=== PATIENT | female | born 1950 | race Caucasian/White ===

== ENCOUNTER 2018-04-30 09:15 | Emergency (ER) | payer OTHER ==
[~2018-04-30] VITALS: Ht 167.6 cm; Wt 99.8 kg
[2018-04-30 09:22] VITALS: BP_SYST 101
[2018-04-30] MEDS ORDERED: LIDOCAINE 1% 10 MG/ML, 20 ML MDV INJ ONE (09:45)
[2018-04-30] MEDS ORDERED: LIDOCAINE 1%, 20 ML MDV 20 ML ONE (09:50)
[2018-04-30] MEDS ORDERED: BACITRACIN 1 GM OINT TP ONE (10:00)
[2018-04-30 10:15] VITALS: BP_SYST 150
== END 2018-04-30 10:15 | disposition home or self-care (01) ==
LOC: SED 09:15
DX: S61.012A Laceration without foreign body of left thumb without damage to nail, initial encounter (principal); E78.00 Pure hypercholesterolemia, unspecified; K21.9 Gastro-esophageal reflux disease without esophagitis; I10 Essential (primary) hypertension; Z90.710 Acquired absence of both cervix and uterus; W26.8XXA Contact with other sharp object(s), not elsewhere classified, initial encounter; Y93.89 Activity, other specified; Y92.89 Other specified places as the place of occurrence of the external cause; Y99.8 Other external cause status
CPT/HCPCS: 12002; 99283; J2001

== ENCOUNTER 2018-11-25 05:28 | Inpatient (IN) | payer OTHER ==
[~2018-11-25] VITALS: Ht 167.6 cm; Wt 99.8 kg
[2018-11-25 05:28] VITALS: BP_SYST 160
--- NOTE | 2018-11-25 05:28 | NUR ---
Patient to ER bed 8 to gown for evaluation. Side rails up.
--- NOTE | 2018-11-25 05:31 | NUR ---
Pt BIB family to ED C/O bilat swelling neck area since yesterday more so to the right. Overall, been about 5 days, affecting her eating and sleeping. Also experiencing night sweats. Pt does take synthroid medication at home. No other injuries and or complaints noted. VSS, no s/s of acute distress. Resting on gurney with rails up
--- NOTE | 2018-11-25 06:00 | NUR ---
Dr. Urrutia Bedside for pt eval
--- NOTE | 2018-11-25 06:01 | NUR ---
ER Dr. Urrutia at bedside examining patient.
[2018-11-25] MEDS ORDERED: NACL 0.9% 1,000 ML IV ONE (06:06)
[2018-11-25] MEDS ORDERED: KETOROLAC TROMETHAMINE 30 MG VIAL IVP ONE (06:15)
[2018-11-25 06:27] LABS: BASOPHILS % (AUTO) 0.5 % (0.0-2.0); EOSINOPHILS # (AUTO) 0.1 K/uL (0.0-0.4); EOSINOPHILS % (AUTO) 1.1 % (0.0-4.0); HEMATOCRIT 41.4 % (36-48); HEMOGLOBIN 13.8 g/dL (12.0-16.0); LYMPHOCYTES # (AUTO) 1.8 K/uL (1.0-5.5); LYMPHOCYTES % (AUTO) 19.5 % (20.5-51.5); MEAN CORPUSCULAR HEMOGLOBIN 30 pg (27-31); MEAN CORPUSCULAR HGB CONC 33 % (32-36); MEAN CORPUSCULAR VOLUME 90 fL (79.0-98.0); MONOCYTES # (AUTO) 0.8 K/uL (0.0-1.0); MONOCYTES % (AUTO) 8.9 % (1.7-9.3); NEUTROPHILS # (AUTO) 6.3 K/uL (1.8-7.7); PLATELET COUNT (AUTO) 265 K/uL (130-430); RED BLOOD CELL COUNT(AUTO) 4.61 MIL/uL (4.2-6.2); RED CELL DISTRIBUTION WIDTH 13.5 % (9.0-15.0); WHITE BLOOD COUNT (AUTO) 9.1 K/uL (4.8-10.8)
[2018-11-25 06:44] LABS: ALBUMIN 3.7 g/dL (3.4-4.8); POTASSIUM 4.9 mmol/L (3.5-5.1); TOTAL BILIRUBIN 0.8 mg/dL (0.0-1.0)
--- NOTE | 2018-11-25 06:51 | NUR ---
Pt awaiting Radiology for CT scan with contrast. Consent already on file
[2018-11-25] MEDS ORDERED: IOHEXOL 350 mgI/mL, 150 ML INFUS..BTL IV ONE (07:04)
[2018-11-25] MEDS ORDERED: IOHEXOL 100 ML IV ONE (07:08)
[2018-11-25] MEDS ORDERED: DEXAMETHASONE SOD PHOSPHATE 10 MG/ML VIAL IVP ONE (07:15)
--- NOTE | 2018-11-25 07:19 | NUR ---
Patient given Decadron as ordered, ambulated to restroom with steady gait. Given urine sample cup for collection. Patients lower jaw line swollen with mild pink skin. Patient states "If I even think about food, the swelling comes back bigger. I only ate cream of wheat for dinner because of difficulty swallowing, I woke up during the night with more swelling and felt shortness of breath." Patient states dry mouth present, no recent dental work, and no recent illness. No fever present, but states she was sweaty when she woke last night. No nausea and vomiting.
--- NOTE | 2018-11-25 07:40 | NUR ---
Patient was taken to CT scan via gurney.
--- NOTE | 2018-11-25 07:53 | NUR ---
Patient returned to room via ellen accompanied by
[2018-11-25 07:55] LABS: BILIRUBIN,URINE NEGATIVE (NEGATIVE); CLARITY/URINE HAZY (CLEAR); COLOR,URINE YELLOW (YELLOW); GLUCOSE,URINE NEGATIVE (NEGATIVE); KETONES,URINE NEGATIVE (NEGATIVE); LEUKOCYTE ESTERASE ,URINE 3+ (NEGATIVE); NITRITE, URINE NEGATIVE (NEGATIVE); PH,URINE 7.5 (5.0-8.0); PROTEIN URINE NEGATIVE (NEGATIVE); UROBILINOGEN,URINE 0.2 (0.2-1.0)
[2018-11-25 08:00] LABS: BLOOD, URINE TRACE (NEGATIVE)
[2018-11-25 08:36] LABS: BACTERIA,URINE FEW /HPF (None Seen); WBC,URINE 50-80 /HPF (0-3)
--- NOTE | 2018-11-25 08:47 | NUR ---
Patient CT scan report received, given to ED MD, call placed to admitting physician.
[2018-11-25] MEDS ORDERED: cefTRIAXone 1 GM IVPB PREMIX 50 ML IV ONE (09:15)
--- NOTE | 2018-11-25 09:25 | NUR ---
Lab completed blood draw for blood cultures x2. Spoke with physician Dr. Lynn via phone, he will put in admitting orders. Will call for room assignment.
[2018-11-25] MEDS ORDERED: ACETAMINOPHEN 325 MG TABLET PO PRN (09:30)
[2018-11-25] MEDS ORDERED: ONDANSETRON HCL 4 MG/2 ML VIAL IVP PRN (09:30)
[2018-11-25] MEDS ORDERED: ALBUTEROL SULFATE 0.083% 2.5 MG/3 ML VIAL.NEB INH PRN ×2 (09:30→10:15)
--- NOTE | 2018-11-25 09:39 | NUR ---
No medication reconciliation completed, patients to bring in medications.
--- NOTE | 2018-11-25 09:39 | NUR ---
Patient will be admitted to care of Dr. Gilda Lynn. Admitted to Telemetry unit. Will go to room 120A. Belongings list completed. Summary report printed. Report will be given at bedside.
--- NOTE | 2018-11-25 09:58 | NUR ---
ADMISSION NOTE Received patient from ER via ellen, received report from CATIA MEDINA. Patient admitted with diagnosis of NECK MASS/UTI. Patient oriented to hospital routine, call light, toileting and safety-patient verbalized understanding.
--- NOTE | 2018-11-25 10:02 | NUR ---
INITIAL ADMISSION NOTE Patient resting in the bed. No acute distress. Respiration even and unlabored. AAO x 4. Stated that "the neck pain very mild after ER gave me pain med, 07/05 now". Skin warm and dry to touch. IV intact to RAC, no redness, no swelling, patent. Discussed the safety issue, use call light when needs help, and plan of care, verbally understanding. Call light within reached. at bedside. Will continue to monitor.
[2018-11-25 10:13] VITALS: BP_SYST 160
[2018-11-25] MEDS ORDERED: cloNIDine HCL 0.1 MG TABLET PO PRN (10:15)
--- NOTE | 2018-11-25 10:15 | NUR ---
SEEN AND EXAMINED BY TREMAYNE Jessica Dr. assessed patient at bedside. Explain the diagnosis and CT result, and answered the question to patient and , verbally understanding.
--- NOTE | 2018-11-25 10:26 | NUR ---
CONSULTATION PAGED/CALLED Reason for Consultation: RESP DISTRESS Person Who was Notified: SPOKE WITH HAZEL FROM [employer] Consulting Physician: Lasting Machine Operator Hand Method Specialty: PULMONARY Ordering Physician:
[2018-11-25] MEDS ORDERED: LISI-600 PO (10:41)
[2018-11-25] MEDS ORDERED: LIP40 PO (10:41)
[2018-11-25] MEDS ORDERED: MULT-1164 PO (10:41)
[2018-11-25] MEDS ORDERED: PRO40 PO (10:41)
[2018-11-25] MEDS ORDERED: ATEN50TA PO (10:41)
[2018-11-25] MEDS ORDERED: PRO10 PO (10:41)
[2018-11-25] MEDS ORDERED: SYN50 PO (10:41)
--- NOTE | 2018-11-25 10:48 | NUR ---
Paged Dr. Lynn for home medication reconciliation
--- NOTE | 2018-11-25 11:10 | NUR ---
SEEN AND EXAMINED BY KENDY EISENBERG Dr. assessed patient at bedside. Explained and answered questions to patient and .
[2018-11-25] MEDS ORDERED: ATENOLOL 50 MG TABLET (TENORMIN) PO ONE (11:30)
[2018-11-25] MEDS ORDERED: LISINOPRIL 20 MG TABLET PO ONE (11:30)
[2018-11-25] MEDS ORDERED: MULTIVITS,CA,MINERALS/IRON/FA 1 TABLET PO ONE (11:30)
[2018-11-25] MEDS ORDERED: PANTOPRAZOLE SODIUM 40 MG TAB PO SCH (11:30)
[2018-11-25] MEDS ORDERED: FLUoxetine HCL 10 MG CAPSULE (PROzac) PO ONE (11:30)
--- NOTE | 2018-11-25 11:32 | NUR ---
CONSULTATION PAGED/CALLED Reason for Consultation: NECK MASS/SALIVARY DUCT OBSTRUCTION Person Who was Notified: CLOTILDE HARDY IS PREPARED [employer] ASSOCIATE FOR Consulting Physician: CLOTILDE HARDY Tip Fixer Specialty: ENT Ordering Physician:
[2018-11-25] MEDS: 0.45% NACL 1,000 ML IV SCH (11:51)
--- NOTE | 2018-11-25 11:54 | NUR ---
MEDS GIVEN PO meds given, patient swallow without difficultly. Aspiration precaution maintained. Safety measure maintained. Call light within reached. Bed locked in low position, side rails up. Continue to monitor.
--- NOTE | 2018-11-25 12:24 | NUR ---
LUNCH Patient had lunch and able to consume 100% of the meal. No c/o pain when chewing. No swallow difficulty noted. Aspiration precaution implemented. Iv intact, IVF infusing well. Safety measure maintained. Call light within reached. Bed locked in low position, side rails up. Refused bed alarm, risk and benefit explained, verbally understanding. Continue to monitor.
--- NOTE | 2018-11-25 13:05 | NUR ---
SLEEPING Patient sleeping at this time. No acute distress. IV intact, IVF infusing well. Safety measure maintained. Bed locked in low position, side rails up. Call light within reached. Continue to monitor.
[2018-11-25] MEDS ORDERED: AMPICILLIN SODIUM/SULBACTAM NA 3 GM VIAL IM SCH (14:00)
--- NOTE | 2018-11-25 14:05 | NUR ---
BATHROOM Ambulated patient to bathroom with carpenter's assistant. Void yellow urine, no hematuria/dysuria noted. Patient prefers and able to wipe the perineal area, then wash hands. Assisted back to bed. Safety measure maintained. Call light within reached. bed locked in low position, side rails up. Continue to monitor.
[2018-11-25] MEDS ORDERED: AMPICILLIN /SULBACTAM NA 3 GM in NORMAL SALINE 100 ML IV ONE (15:15)
[2018-11-25 16:26] VITALS: BP_SYST 134
--- NOTE | 2018-11-25 16:33 | NUR ---
WATCHING TV Patient resting in the bed and watching TV. No acute distress. Safety measure maintained. Call light within reached. Bed locked in low position, side rails up. Continue to monitor.
--- NOTE | 2018-11-25 18:57 | NUR ---
CLOSING NOTE Patient resting in the bed. No acute distress. Denied of pain. Skin warm and dry to touch. V intact to RAC, no redness, no swelling, no drainage. On 06/27 NS at 50ml/hr, infusing well. at bedside. All needs met. Safety measure maintained. Bed locked in low position, side rails up. Refused bed alarm, risk and benefit explained, verbally understanding. Call light within reached. Will endorse to night nurse.
--- NOTE | 2018-11-25 19:15 | NUR ---
Opening notes Received report. Patient resting comfortably in bed. no signs of distress noted. Breathing even and unlabored. Patient states swelling in neck has gone down. IV patent and intact. No needs at this time. Call light with the patient. Safety precautions in place.
[2018-11-25 20:00] VITALS: BP_SYST 144
[2018-11-25] MEDS ORDERED: ATORVASTATIN 20 MG TABLET PO SCH (21:00)
[2018-11-25] MEDS: AMPICILLIN /SULBACTAM NA 3 GM in NORMAL SALINE 100 ML IV SCH (21:07)
--- NOTE | 2018-11-25 21:07 | NUR ---
Medications given. Educated the action and side effects of medications. Patient verbalized understanding and tolerated well. No signs of allergic reaction noted. Patient provided own oral care. No needs. Call light with the patient. Safety precautions in place.
[2018-11-25] MEDS ORDERED: AMPICILLIN SODIUM/SULBACTAM NA 3 GM VIAL IV SCH (22:00)
--- NOTE | 2018-11-25 23:00 | NUR ---
Resting in bed, on cell phone. No signs of distress noted. Breathing even and unlabored. IV patent and intact. Safety precautions in place.
[2018-11-26 00:27] VITALS: BP_SYST 142
--- NOTE | 2018-11-26 01:17 | NUR ---
Resting Patient is on cellphone. No signs of distress noted. Breathing even and unlabored. Safety precautions in place.
--- NOTE | 2018-11-26 04:00 | NUR ---
Sleeping No signs of distress noted. Breathing even and unlabored. IVF infusing well. Safety precautions in place.
[2018-11-26] MEDS: 0.45% NACL 1,000 ML IV SCH ×2 (04:56→08:17)
[2018-11-26] MEDS: AMPICILLIN /SULBACTAM NA 3 GM in NORMAL SALINE 100 ML IV SCH (06:08)
[2018-11-26 06:16] LABS: BASOPHILS % (AUTO) 0.1 % (0.0-2.0); HEMATOCRIT 40.5 % (36-48); HEMOGLOBIN 13.2 g/dL (12.0-16.0); LYMPHOCYTES # (AUTO) 1.5 K/uL (1.0-5.5); LYMPHOCYTES % (AUTO) 12.4 % (20.5-51.5); MEAN CORPUSCULAR HEMOGLOBIN 29 pg (27-31); MEAN CORPUSCULAR HGB CONC 33 % (32-36); MEAN CORPUSCULAR VOLUME 90 fL (79.0-98.0); MONOCYTES # (AUTO) 0.7 K/uL (0.0-1.0); MONOCYTES % (AUTO) 6.1 % (1.7-9.3); NEUTROPHILS # (AUTO) 9.9 K/uL (1.8-7.7); NEUTROPHILS % (AUTO) 81.4 % (40.0-70.0); PLATELET COUNT (AUTO) 270 K/uL (130-430); RED BLOOD CELL COUNT(AUTO) 4.49 MIL/uL (4.2-6.2); RED CELL DISTRIBUTION WIDTH 13.6 % (9.0-15.0); WHITE BLOOD COUNT (AUTO) 12.1 K/uL (4.8-10.8)
[2018-11-26 06:17] LABS: ALBUMIN 3.3 g/dL (3.4-4.8); CALCIUM 9.1 mg/dL (8.4-11.0); CREATININE 0.83 mg/dL (0.55-1.30); POTASSIUM 4.9 mmol/L (3.5-5.1); TOTAL BILIRUBIN 0.7 mg/dL (0.0-1.0)
--- NOTE | 2018-11-26 06:39 | NUR ---
Closing notes Patient resting comfortably in bed. No signs of distress noted. Breathing is even and unlabored. IV is patent and intact, infusing antibiotics. All needs met throughout the shift. Call light with the patient. Safety precautions in place. Will endorse care to day shift RN.
[2018-11-26] MEDS ORDERED: LEVOTHYROXINE SODIUM 0.05 MG TABLET PO SCH (07:00)
[2018-11-26] MEDS ORDERED: LEVOTHYROXINE SODIUM 0.025 MG TABLET PO SCH (07:00)
--- NOTE | 2018-11-26 07:45 | NUR ---
INITIAL NOTE RECEIVED PT IN BED, NO S/S OF DISTRESS OR SOB NOTED, PT HAS NO C/O PAIN AT THIS TIME, PT IN STABLE CONDITION, PT AAOX4, VERBAL. IV CATHETER PATENT, NO SIGNS OF INFECTION OR INFILTRATION NOTED. BED AT LOWEST POSITION, CALL LIGHT WITHIN REACH, WILL CONTINUE TO MONITOR PT FOR ANY CHANGES, FALL AND SAFETY PRECAUTIONS IN PLACE. NOTED PT HAS SWELLING ON RIGHT PARATOID GLAND.
[2018-11-26 08:19] VITALS: BP_SYST 167
[2018-11-26] MEDS ORDERED: MULTIVITS,CA,MINERALS/IRON/FA 1 TABLET PO SCH (09:00)
[2018-11-26] MEDS ORDERED: PANTOPRAZOLE SODIUM 40 MG TAB PO SCH (09:00)
[2018-11-26] MEDS ORDERED: ATENOLOL 50 MG TABLET (TENORMIN) PO SCH (09:00)
[2018-11-26] MEDS ORDERED: FLUoxetine HCL 10 MG CAPSULE (PROzac) PO SCH (09:00)
[2018-11-26] MEDS ORDERED: LISINOPRIL 20 MG TABLET PO SCH (09:00)
--- NOTE | 2018-11-26 10:10 | NUR ---
ROUNDS PT IN BED, NO S/S OF DISTRESS OR SOB NOTED, PT HAS NO C/O PAIN AT THIS TIME, PT IN STABLE CONDITION, PT WATCHING TV, WILL CONTINUE TO MONITOR PT FOR ANY CHANGES.
--- NOTE | 2018-11-26 10:28 | NUR ---
BLOOD PRESSURE PATIENT'S BLOOD PRESSURE IS 158/84, 75, PT ASYMPTOMATIC, NO C/O HEADACHE OR DIZZINESS, DR CONSTANTINO ROUNDING AND MADE AWARE, NEW ORDERS.
[2018-11-26] MEDS ORDERED: cloNIDine HCL 0.1 MG TABLET PO ONE (10:30)
[2018-11-26 11:43] VITALS: BP_SYST 128
--- NOTE | 2018-11-26 11:55 | NUR ---
D/C Patient Patient given medication reconciliation form and D/C instructions. Exit Care provided. Patient verbalized understanding. MD discussed with patient the results and treatment provided. Ambulatory with steady gait for discharge to home. Patient in stable condition, ID band removed. IV catheter removed, intact and dressing applied, no active bleeding. Rx of augmentin given. Patient educated on pain management. All belongings sent with patient. Addendum: 11/26/18 at 1159 by Hattie Lemus RN blood pressure 128/82, 18, 60, 98.6, 93% room air.
== END 2018-11-26 11:55 | disposition home or self-care (01) | DRG 156 ==
LOC: SED 05:28 → STU 09:19
PROVIDERS: ADMIT Internal Medicine; ATTEND Internal Medicine
DX: K11.20 Sialoadenitis, unspecified (principal); K21.9 Gastro-esophageal reflux disease without esophagitis; K11.1 Hypertrophy of salivary gland; E78.5 Hyperlipidemia, unspecified; E03.9 Hypothyroidism, unspecified; I10 Essential (primary) hypertension; F32.9 Major depressive disorder, single episode, unspecified
CPT/HCPCS: 36415; 70491-TC; 71045; 80053; 81000-TC; 82378; 83605; 85025; 87040-TC; 87086; 93005; 96361; 96365; 96375; 99285; G0378; J0295; J0696; J1100; J1885; Q9967